=== PATIENT | female | born 1990 | race Two or more races ===

== ENCOUNTER 2017-11-01 19:47 | Emergency (ER) | payer OTHER ==
[2017-11-01 19:51] VITALS: BMI 35.5
--- NOTE | 2017-11-01 19:53 | PDOC ---
Rapid Medical Evaluation Time Seen by Provider: 11/01/17 19:48 Medical Evaluation: Allergies Allergy/AdvReac Type Severity Reaction Status Date / Time No Known Allergies Allergy Verified 10/17/17 12:36 11/01/17 19:48 I have performed a brief in-person evaluation of this patient. The patient presents with a chief complaint of: numbness to R arm, "couldn't speak for 5 minutes and blurry vision at 6:50 pm today, symptoms resolved now but pt c/o headache. Per patient called him and witnessed slurred speech. patient delivered baby on this past Monday, has had hx of preecclampsia 3 years ago during last Pertinent physical exam findings: uncomfortable/anxious appearing, no appreciable neuro deficits I have ordered the following: stroke code The patient will proceed to the ED for further evaluation. Discharge Disposition - Diagnosis Headache - Referrals - Patient Instructions - Post Discharge Activity
[2017-11-01] MEDS ORDERED: SODIUM CHLORIDE 1,000 ML IV SCH (20:00)
--- NOTE | 2017-11-01 20:19 | PDOC ---
Attending Attestation - HPI HPI: 11/01/17 21:55 The patient is a 27 year old female accompanied with her , with a significant past medical history of preeclampsia (3 years ago 1st ), and 5 days ago, who presents to the emergency department for evaluation of right arm paresthesia and dysarthria for less than 10 minutes today around 6:50 pm today. The patient reports right arm numbness and heaedache. As per , the patient could not speak properly on the phone for 5 minutes prompting him to activate EMS. Pt reported associated symptoms of palpitations and dysarthria which have since resolved. Of note, the patient gave to her second child on Monday and was discharged from the hospital on Monday (10/30). The patient denies any complications with , chest pain, shortness of breath, fever, chills, nausea, and vomiting. Allergies: NKDA Social History: No reported alcohol, cigarette, or drug use. Surgical History: . <Rolando Garcia - Last Filed: 11/01/17 21:55> - Resident Resident Name: Jesus rC - ED Attending Attestation I have performed the following: I have examined & evaluated the patient, The case was reviewed & discussed with the resident, I agree w/resident's findings & plan, Exceptions are as noted - Physicial Exam PE: 11/01/17 22:02 *Physical Exam General Appearance: Yes: Appropriately Dressed. No: Apparent Distress, Intoxicated HEENT: positive: EOMI, ELIAS, Normal ENT Inspection, Normal Voice, TMs Normal, Pharynx Normal. negative: Pale Conjunctivae, Photophobia, Scleral Icterus (R), Scleral Icterus (L) Neck: positive: Trachea midline, Normal Thyroid, Supple. negative: Tender, Rigid, Carotid bruit, Stridor, Lymphadenopathy (R), Lymphadenopathy (L), Thyromegaly Respiratory/Chest: positive: Lungs Clear, Normal Breath Sounds. negative: Chest Tender, Respiratory Distress, Accessory Muscle Use, Labored Respiration, RES, Crackles, Rales, Rhonchi, Stridor, Wheezing, Dullness Cardiovascular: positive: Regular Rhythm, Regular Rate, S1, S2. negative: Edema , JVD, Murmur, Bradycardia, Tachycardia Vascular Pulses: Dorsalis-Pedis (R): 2+, Doralis-Pedis (L): 2+ Gastrointestinal/Abdominal: positive: Normal Bowel Sounds, Flat, Soft. negative : Tender, Organomegaly, Pulsatile Mass, Increased Bowel Sounds, Decreased BS, Distended, Guarding, Rebound, Hernia, Hepatomegaly, Spleenomegaly Lymphatic: negative: Adenopathy, Tenderness Musculoskeletal: positive: Normal Inspection. negative: CVA Tenderness, Decreased Range of Motion Extremity: positive: Normal Capillary Refill, Normal Inspection, Normal Range of Motion, Pelvis Stable. negative: Tender, Pedal Edema, Swelling, Erythema Integumentary: positive: Normal Color, Dry, Warm. 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 negative: EOM Palsy, Facial Droop, Sensory Deficit - Medical Decision Making 11/01/17 22:02 Pt treated and released <Neymar De Souza - Last Filed: 11/01/17 22:02> Attestations - Attestations Documentation prepared by Rolando Garcia, acting as clinical medical assistant for Neymar De Souza DO. <Rolando Garcia - Last Filed: 11/01/17 21:55>
--- NOTE | 2017-11-01 20:35 | PDOC ---
History of Present Illness - General History Source: Patient Exam Limitations: No Limitations - History of Present Illness Initial Comments: 11/01/17 20:31 Patient is a 27F with history of pre-eclampsia in prior 3 years ago, c -section 5 days ago, discharged 2 days ago here today complaining of dysarthria for less than 10 minutes today. Patient's states that she couldn't form words normally over the phone, so he rushed home to take her to the hospital. Patient describes a feeling of impending doom, heart palpitations, blurry vision , and struggling to speak. Denies chest pain, shortness of breath. Endorses abdominal pain around incision. Denies any focal motor deficits. Denies nausea, vomiting, fevers and chills. Patient states that the symptoms resolved after about 5 minutes. Patient denies having pre-eclampsia or any other complications with this other than a reading of low amniotic fluid level. <Jesus Cr - Last Filed: 11/01/17 22:04> <Neymar De Souza - Last Filed: 11/01/17 22:09> - General Chief Complaint: CVA/TIA Stated Complaint: NUMBNESS/BLURRY VISION Time Seen by Provider: 11/01/17 19:48 Past History - Past Medical History Asthma: No Cancer: No Cardiac Disorders: No COPD: No Diabetes: No GI Disorders: Yes (gallstones) HTN: No Seizures: No Thyroid Disease: No - Immunization History Immunization Up to Date: Yes - Suicide/Smoking/Psychosocial Hx Smoking History: Never smoked Have you smoked in the past 12 months: No Hx Alcohol Use: No Drug/Substance Use Hx: No Hx Substance Use Treatment: No <Jesus Cr - Last Filed: 11/01/17 22:04> <Neymar De Souza - Last Filed: 11/01/17 22:09> - Past Medical History Allergies/Adverse Reactions: Allergies Allergy/AdvReac Type Severity Reaction Status Date / Time No Known Allergies Allergy Verified 11/01/17 19:52 Home Medications: Ambulatory Orders Ibuprofen [Motrin -] 600 mg PO QID #28 tablet 10/29/17 Review of Systems - Review of Systems Able to Perform ROS?: No Comments:: 11/01/17 20:35 GENERAL/CONSTITUTIONAL: No fever or chills. No weakness. HEAD, EYES, EARS, NOSE AND THROAT: No change in vision. No sore throat. CARDIOVASCULAR: No chest pain or shortness of breath RESPIRATORY: No cough, wheezing, or hemoptysis. GASTROINTESTINAL: No nausea, vomiting, diarrhea or constipation. GENITOURINARY: No dysuria, frequency, or change in urination. MUSCULOSKELETAL: No joint or muscle swelling or pain. No neck or back pain. SKIN: No rash NEUROLOGIC: No headache, vertigo, loss of consciousness, or change in strength/ sensation. ENDOCRINE: No increased thirst. No abnormal weight change HEMATOLOGIC/LYMPHATIC: No anemia, easy bleeding, or history of blood clots. ALLERGIC/IMMUNOLOGIC: No hives or skin allergy. <Jesus Cr - Last Filed: 11/01/17 22:04> *Physical Exam - Vital Signs Last Vital Signs Temp Pulse Resp BP Pulse Ox 98.4 F 66 18 134/69 99 11/01/17 19:48 11/01/17 19:48 11/01/17 19:48 11/01/17 19:48 11/01/17 19:48 - Physical Exam Comments: 11/01/17 20:36 GENERAL: Awake, alert, and fully oriented, in no acute distress HEAD: No signs of trauma, normocephalic, atraumatic EYES: PERRLA, EOMI, sclera anicteric, conjunctiva clear ENT: Auricles normal inspection, hearing grossly normal, nares patent, oropharynx clear without exudates. Moist mucosa NECK: Normal ROM, supple, no lymphadenopathy, JVD, or masses LUNGS: No distress, speaks full sentences, clear to auscultation bilaterally HEART: Regular rate and rhythm, normal S1 and S2, no murmurs, rubs or gallops, peripheral pulses normal and equal bilaterally. ABDOMEN: Soft, nontender, normoactive bowel sounds. No guarding, no rebound. No masses. Stapled, well appearing scar EXTREMITIES: Normal inspection, Normal range of motion, no edema. No clubbing or cyanosis. NEUROLOGICAL: Cranial nerves II through XII grossly intact. Normal speech, normal gait, no focal sensorimotor deficits SKIN: Warm, Dry, normal turgor, no rashes or lesions noted. <Jesus Cr - Last Filed: 11/01/17 22:04> - Vital Signs Last Vital Signs Temp Pulse Resp BP Pulse Ox 98.4 F 66 18 134/69 99 11/01/17 19:48 11/01/17 19:48 11/01/17 19:48 11/01/17 19:48 11/01/17 19:48 <Neymar De Souza - Last Filed: 11/01/17 22:09> NIH Stroke Scale - Last Known Well Date/Time & Onset Date Last Known Well: 11/01/17 Time Last Known Well: 18:50 - Initial Evaluation Level of consciousness: Alert Ask patient the month and their age: Answers both correctly Ask patient to open & close eyes; make fist and let go: Obeys both correctly Best gaze (horizontal eye movement): Normal Visual field testing: No visual field loss Facial paresis (Show teeth/raise eyebrows/close eyes tight): Normal symmetrical movement Motor Function: Left Arm: Normal Motor Function: Right Arm: Normal (extends arm 90 (or 45) degrees for 10 seconds without drift Motor Function: Left Leg: Normal (extends leg 30 degrees for 5 seconds without drift) Motor Function: Right Leg: Normal (extends leg 30 degrees for 5 seconds without drift) Limb Ataxia: No ataxia Sensory(Use pinprick test arms,legs,trunk,face/side to side): Normal Best language (Describe picture, name items, read sentences): No Aphasia Dysarthria (read several words): Normal articulation Extinction and Inattention: No abnormality - Total Score NIH Stroke Scale Score: 0 <Jesus Cr - Last Filed: 11/01/17 22:04> TIA Risk Factors - ABCD Score Age: Age < 60 Blood Pressure: SBP < 140 and DBP < 90 Clinical Features of TIA: Speech impair w/o uni wk Diabetes: No <Jesus Cr - Last Filed: 11/01/17 22:04> Critical Care Time/MDM Note - Medical Decision Making Note: 11/01/17 20:36 Patient is 27F with history of preeclampsia 3 years ago and recent here today complaining of dysarthria. Gavin rajput initiated in triage, sent to CT. Neuro exam normal, history gathered after activation of code rajput. Spoke with triage, neuro exam normal at that time, activated due to possible TIA. DDx includes TIA, but believe patient most likely has had panic attack. Stroke set ordered. CT head normal. 11/01/17 22:04 EKG shows normal sinus rhythm with rate of 75. No st elevations/depressions. No significant t wave inversions. Normal axis. Normal intervals. 11/01/17 22:05 Laboratory Tests 11/01/17 11/01/17 11/01/17 20:44 20:44 20:44 WBC 7.2 Hgb 12.4 Plt Count 263 D INR 0.92 BUN 7 Creatinine 0.4 L Troponin I < 0.02 CBC normal. CMP reassuring. Troponin negative. Patient observed for two hours without change in status. Believe that patient did not have TIA/Stroke. Patient is asking to go home to breastfeed her , believe this is an appropriate plan. Given return precautions. Discharged home with neuro follow up. <Jesus Cr - Last Filed: 11/01/17 22:04> Discharge Disposition - Discharge Dispostion Last Admission D/C Date: 10/30/17 Decision to Admit order: No <Jesus Cr - Last Filed: 11/01/17 22:04> <Neymar De Souza - Last Filed: 11/01/17 22:09> - Diagnosis Panic attack - Discharge Dispostion Disposition: HOME Condition at time of disposition: Good - Referrals Referrals: Alex Jeffries MD [Staff Physician] - - Patient Instructions Printed Discharge Instructions: DI for Panic Disorder Additional Instructions: Please return if you have any new worsening or concerning symptoms. Please call a neurologist tomorrow to set up further follow up. Print Language: WOLOF
[2017-11-01 20:53] LABS: BASO % 0.5 % (0-2.0); EOS % 4.3 % (0-4.5); HEMATOCRIT 36.4 % (32.4-45.2); HEMOGLOBIN 12.4 GM/dL (10.7-15.3); LYMPH % 21.9 % (8-40); MCH 31.8 pg (25.7-33.7); MEAN CELL VOLUME 93.4 fl (80-96); MEAN PLT VOLUME 8.9 fl (7.5-11.1); NEUT % 66.3 % (42.8-82.8); PLATELET COUNT 263 K/MM3 (134-434); RDW 13.1 % (11.6-15.6); WHITE BLOOD COUNT 7.2 K/mm3 (4.0-10.0)
[2017-11-01 21:15] LABS: ALBUMIN 2.7 g/dl (3.4-5.0); ANION GAP 11 (8-16); BILIRUBIN,TOTAL 0.3 mg/dL (0.2-1.0); BLOOD UREA NITROGEN 7 mg/dL (7-18); CALCIUM 8.6 mg/dL (8.5-10.1); CHLORIDE 109 mmol/L (98-107); CHOLESTEROL 275 mg/dL (50-200); CO2 24 mmol/L (21-32); CREATININE 0.4 mg/dL (0.55-1.02); GLUCOSE,RANDOM 98 mg/dL (74-106); POTASSIUM 3.4 mmol/L (3.5-5.1); SGOT/AST 21 U/L (15-37); SGPT/ALT 30 U/L (12-78); SODIUM 144 mmol/L (136-145); TOT PROT 6.5 g/dl (6.4-8.2); TRIGLYCERIDES 216 mg/dL (35-160)
[2017-11-01 21:16] LABS: ALK PHOS 112 U/L (45-117); HDL CHOLESTEROL 77 mg/dL (40-60)
[2017-11-01 21:38] LABS: INR 0.92 (0.82-1.09); PROTHROMBIN TIME (PATIENT) 10.4 SEC (9.7-13.0)
[2017-11-01 22:20] VITALS: BP 130/62; PULSE 61; TEMP 98.5
--- NOTE | 2017-11-02 14:22 | EKG ---
Test Reason : Blood Pressure : / mmHG Vent. Rate : 075 BPM Atrial Rate : 075 BPM P-R Int : 180 ms QRS Dur : 090 ms QT Int : 380 ms P-R-T Axes : 050 046 045 degrees QTc Int : 424 ms NORMAL SINUS RHYTHM NORMAL ECG NO PREVIOUS ECGS AVAILABLE Confirmed by KAHTIA GERMAN MD ([id number]) on 11/02/2017 2:22:27 PM Referred By: Confirmed By:KATHIA GERMAN MD
== END 2017-11-01 22:20 | disposition home or self-care (01) ==
LOC: JER 19:47
PROC: 3E0337Z Introduction of Electrolytic and Water Balance Substance into Peripheral Vein, Percutaneous Approach (ICD-10-PCS; principal; 2017-11-01)
DX: O90.89 Other complications of the puerperium, not elsewhere classified (principal); F41.0 Panic disorder [episodic paroxysmal anxiety]
CPT/HCPCS: 36415; 70450-TC; 80053; 82465; 82550; 83718; 83721; 84478; 84484; 85025; 85610; 86850; 86900; 86901; 93005; 93010; 96374; 99283-25; J7030

== ENCOUNTER 2023-09-15 14:50 | Emergency (ER) | payer BC, OTHER ==
[2023-09-15 14:57] VITALS: BMI 37.6
[2023-09-15] MEDS ORDERED: ONDANSETRON 4 MG/2 ML VIAL ONE (16:18)
[2023-09-15] MEDS: ONDANSETRON 4 MG/2 ML VIAL IVPUSH ONE (16:30)
[2023-09-15 16:34] LABS: BASO % 0.1 % (0-2.0); EOS % 1.4 % (0-4.5); HEMATOCRIT 39.5 % (32.4-45.2); HEMOGLOBIN 13.6 GM/dL (10.7-15.3); LYMPH % 16.7 % (8-40); MCH 31.1 pg (25.7-33.7); MCHC 34.4 g/dl (32.0-36.0); MEAN CELL VOLUME 90.2 fl (80-96); MEAN PLT VOLUME 9.2 fl (7.5-11.1); MONO % 5.6 % (3.8-10.2); NEUT % 76.2 % (42.8-82.8); PLATELET COUNT 241 10^3/uL (134-434); RBC 4.38 M/mm3 (3.60-5.2); RDW 13.1 % (11.6-15.6)
[2023-09-15 16:36] LABS: EPI CELLS >36 /uL (0-25.1); HYALINE CASTS 0 /uL (0-3.1); URINE APPEARANCE CLEAR; URINE BACTERIA 1927 /uL (0-1359); URINE BILIRUBIN NEGATIVE (NEGATIVE); URINE COLOR YELLOW; URINE GLUCOSE (UA) NEGATIVE (NEGATIVE); URINE KETONE TRACE (NEGATIVE); URINE LEUK ESTERASE NEGATIVE (NEGATIVE); URINE NITRITE NEGATIVE (NEGATIVE); URINE PROTEIN NEGATIVE (NEGATIVE); URINE RBC 22 /uL (0-23.9); URINE UROBILINOGEN 0.2 mg/dL (0.2-1.0); URINE WBC 21 /uL (0-25.8)
[2023-09-15 16:40] VITALS: BP 133/93; RESP 16; TEMP 98.8
[2023-09-15 16:42] LABS: INR 0.99 (0.83-1.09); PROTHROMBIN TIME (PATIENT) 11.4 SEC (9.7-13.0)
[2023-09-15 16:45] LABS: ACTIVATED PTT 29.1 SECONDS (25.2-36.5)
[2023-09-15 16:51] LABS: CHLORIDE 106 mmol/L (98-107); POTASSIUM 3.8 mmol/L (3.5-5.1); SODIUM 136 mmol/L (136-145)
[2023-09-15 16:55] LABS: ANION GAP 6 mmol/L (4-13); CALCIUM 8.9 mg/dL (8.5-10.1); CO2 24 mmol/L (21-32)
[2023-09-15 16:57] LABS: BLOOD UREA NITROGEN 9.7 mg/dL (7-18); GLUCOSE,RANDOM 116 mg/dL (74-106)
[2023-09-15 17:00] LABS: CHOLESTEROL 179 mg/dL (50-200); CREATININE 0.6 mg/dL (0.55-1.3); LDL CHOLESTEROL (ONLY SJRH) 115 mg/dL (5-100); SGOT/AST 28 U/L (15-37); SGPT/ALT 78 U/L (13-61); TOT PROT 7.7 g/dl (6.4-8.2)
[2023-09-15 17:01] LABS: BILIRUBIN,TOTAL 0.4 mg/dL (0.2-1)
[2023-09-15 17:02] LABS: ALK PHOS 89 U/L (45-117); HDL CHOLESTEROL 46 mg/dL (40-60)
[2023-09-15] MEDS: SODIUM CHLORIDE 1,000 ML IV STA (17:42)
[2023-09-15] MEDS ORDERED: KETOROLAC TROMETHAMINE 15 MG/ML VIAL ONE (17:46)
[2023-09-15] MEDS ORDERED: ACETAMINOPHEN INJECTION 100 ML IVPB ONE (17:46)
[2023-09-15] MEDS: ACETAMINOPHEN 1000 MG/100 ML BAG IVPB ONE (17:53)
[2023-09-15] MEDS: KETOROLAC TROMETHAMINE 30 MG/1 ML VIAL IVPUSH ONE (17:53)
[2023-09-15 19:06] VITALS: PULSE 64
== END 2023-09-15 19:46 | disposition home or self-care (01) ==
LOC: JER 14:50
PROC: 3E033NZ Introduction of Analgesics, Hypnotics, Sedatives into Peripheral Vein, Percutaneous Approach (ICD-10-PCS; principal; 2023-09-15)
PROC: 3E0333Z Introduction of Anti-inflammatory into Peripheral Vein, Percutaneous Approach (ICD-10-PCS; 2023-09-15)
PROC: 3E033GC Introduction of Other Therapeutic Substance into Peripheral Vein, Percutaneous Approach (ICD-10-PCS; 2023-09-15)
PROC: 3E0337Z Introduction of Electrolytic and Water Balance Substance into Peripheral Vein, Percutaneous Approach (ICD-10-PCS; 2023-09-15)
DX: R51.9 Headache, unspecified (principal); R20.0 Anesthesia of skin; R11.2 Nausea with vomiting, unspecified; H53.8 Other visual disturbances
CPT/HCPCS: 36415; 70450-TC; 80053; 80061; 81003; 82550; 83036; 84484; 84703; 85025; 85610; 85730; 86850; 86900; 86901; 93005; 93010; 99285-25; J0131